=== PATIENT | female | born 1995 | race Caucasian/White ===

== ENCOUNTER 2018-03-05 20:38 | Emergency (ER) | payer OTHER ==
[2018-03-05] MEDS ORDERED: Sodium Chloride 0.9% 2.5 ML Syringe FLUSH PRN (20:57)
[2018-03-05] MEDS ORDERED: Ketorolac 30 MG/ML SDV IVPUSH ONE (20:57)
[2018-03-05] MEDS ORDERED: Ondansetron 4 MG/2 ML SDV IVPUSH ONE (20:57)
[2018-03-05] MEDS ORDERED: Sodium Chloride 0.9% 1,000 ML IV ONE (20:57)
[2018-03-05] MEDS ORDERED: Sodium Chloride 0.9% 10 ML Syringe FLUSH PRN (20:57)
[2018-03-05] MEDS ORDERED: Aspirin 81 MG Tab.Chew PO ONE (21:00)
--- NOTE | 2018-03-05 21:00 | EDM.PDOC ---
ED HPI GENERAL MEDICAL PROBLEM - General Chief Complaint: Chest Pain Stated Complaint: CHEST PAIN Time Seen by Provider: 03/05/18 20:41 - History of Present Illness INITIAL COMMENTS - FREE TEXT/NARRATIVE: HISTORY AND PHYSICAL: History of present illness: The patient is a 22-year-old female who arrives via EMS for an episode of feeling like her heart was beating irregularly which then proceeded to cause chest tightness radiating to her left upper shoulder area The patient says she has a significant history of an irregular heartbeat for which she did a Holter monitor about 2 years ago and was supposed to follow-up with a fur puller but never got the results of the Holter nor did she follow-up with a fur puller. She says she has had these episodes in the past to neck seem to be more severe. She says over the last 1 week she's been having them more frequently and they' ve been brief in duration. She does not pass out or blacked out but she does feel lightheaded with them. She gets nausea but no diaphoresis and does get some shortness of breath. She's been eating and drinking normally otherwise and has had no fever chills or upper respiratory symptoms and no diarrhea or abdominal pain. The patient also has a history of chronic migraines and has had a migraine headache for the last 2-3 days but she is not here in the ED for that. She also has a history of PCO S and was prescribed phentermine by her provider back home in [place] which she took only once but didn't like the way it made her feel so she has not taken it since. The patient has no significant family history of cardiac disease and has no significant social history. Her only in the ED says that she feels very lightheaded and nauseated but is not having chest discomfort on my evaluation. The patient does not take oral control pills Review of systems: As per history of present illness and below otherwise all systems reviewed and negative. Past medical history: As per history of present illness and as reviewed below otherwise noncontributory. Surgical history: As per history of present illness and as reviewed below otherwise noncontributory. Social history: No reported history of drug or alcohol abuse. Family history: As per history of present illness and as reviewed below otherwise noncontributory. Physical exam: General: Well-developed well-nourished female who is nontoxic and vital signs are noted by me. HEENT: Atraumatic, normocephalic, pupils reactive, negative for conjunctival pallor or scleral icterus, mucous membranes moist, throat clear, neck supple, nontender, trachea midline. Lungs: Clear to auscultation, breath sounds equal bilaterally, chest nontender. Heart: S1S2, regular, negative for clicks, rubs, or JVD. Abdomen: Soft, nondistended, nontender. Negative for masses or hepatosplenomegaly. Negative for costovertebral tenderness. Pelvis: Stable nontender. Genitourinary: Deferred. Rectal: Deferred. Extremities: Atraumatic, negative for cords or calf pain. Neurovascular unremarkable. No pedal edema or leg asymmetry Neuro: Awake, alert, oriented. Cranial nerves II through XII unremarkable. Cerebellum unremarkable. Motor and sensory unremarkable throughout. Exam nonfocal. Diagnostics: EKG chest x-ray CBC CMP troponin UA UCG TSH orthostatic vitals Therapeutics: IV fluids IV O2 monitor Zofran Toradol aspirin morphine With orthostatic vitals there was no change in blood pressure but the heart rate did go from 92 laying to 77 standing with the patient was asymptomatic. Please also note that the patient initially came in slightly tachycardic which resolved spontaneously and has maintained a normal rate. The patient has been in a regular rhythm here on the monitor and still complains of chest discomfort. Patient is still complaining of lower midsternal chest discomfort which there is some reproducibility to it that on reevaluation. She has been a sinus rhythm here without any regularity. I will do a repeat EKG and troponin as it's been 2 hours since the prior and I will also order a CTA of the chest as there is somewhat atypicality to her presentation. I will also give her a small dose of morphine. After multiple attempts at trying to get an appropriate IV I discussed with the patient holding the CTA of the chest as clinically she is presenting more as palpitations with atypical chest pain that she has had on-and-off over the last 1 week rather than an acute event. She would like to not pursue any further IV attempts and would like to hold on the CTA as well. I've done to EKGs and 2 cardiac enzymes both of which are within normal limits and I stressed to her the need and importance of following up in the clinic and getting a Holter monitor and getting appropriate follow-up for the symptomatology she is having. She is feeling better overall and is comfortable with going home and I stressed the importance of reasons to return. Impression: Episodic palpitations/irregular heartbeat with history of same associated with chest pain, etiology unclear stable Definitive disposition and diagnosis as appropriate pending reevaluation and review of above. chest Pain Score (Numeric/FACES): 8 - Related Data Allergies Allergy/AdvReac Type Severity Reaction Status Date / Time pseudoephedrine Allergy Hives Verified 03/05/18 20:53 [From Sudafed] tramadol Allergy Hives Verified 03/05/18 20:53 Home Meds: Home Meds . [No Known Home Meds] 03/05/18 [History] Past Medical History Cardiovascular History: Reports: Arrhythmia WIRER HELPER History: Reports: Polycystic Ovaries Social & Family History - Family History Family Medical History: Noncontributory - Tobacco Use Smoking Status *Q: Never Smoker - Recreational Drug Use Recreational Drug Use: No ED ROS GENERAL - Review of Systems Review Of Systems: ROS reveals no pertinent complaints other than HPI. ED EXAM, GENERAL - Physical Exam Exam: See Below (See dictation) Course - Vital Signs Last Recorded V/S: Last Vital Signs Temp 36.3 C 03/05/18 20:38 Pulse 77 03/05/18 22:35 Resp 17 03/05/18 22:35 BP 122/78 03/05/18 22:35 Pulse Ox 100 03/05/18 22:35 - Orders/Labs/Meds Orders: Active Orders 24 hr Category Date Time Status Cardiac Monitoring [RC] . DIRECTED Care 03/05/18 20:56 Active EKG Documentation Completion [RC] STAT Care 03/05/18 20:56 Active EKG Documentation Completion [RC] STAT Care 03/05/18 23:22 Active Orthostatic Vital Signs [RC] ASDIRECTED Care 03/05/18 20:57 Active Oxygen Therapy, ED [RC] ASDIRECTED Care 03/05/18 20:56 Active Pulse Oximetry [RC] ASDIRECTED Care 03/05/18 20:56 Active Ang Chest [CT] Stat Exams 03/05/18 23:37 Stop Req Chest 1V Frontal [CR] Stat Exams 03/05/18 20:57 Taken HCG QUALITATIVE,URINE [URCHEM] Stat Lab 03/05/18 23:52 Ordered UA W/MICROSCOPIC [URIN] Stat Lab 03/05/18 23:52 Ordered Sodium Chloride 0.9% [Saline Flush] Med 03/05/18 20:57 Active 10 ml FLUSH ASDIRECTED PRN Sodium Chloride 0.9% [Saline Flush] Med 03/05/18 20:57 Active 2.5 ml FLUSH ASDIRECTED PRN Saline Lock Insert [OM.PC] Stat Oth 03/05/18 20:56 Ordered Medication Orders Sodium Chloride (Saline Flush) 10 ml FLUSH ASDIRECTED PRN PRN Reason: Keep Vein Open Sodium Chloride (Saline Flush) 2.5 ml FLUSH ASDIRECTED PRN PRN Reason: Keep Vein Open Labs: Laboratory Tests 03/05/18 03/05/18 03/05/18 Range/Units 21:41 21:41 21:41 WBC 7.23 (4.0-11.0) K/uL RBC 4.79 (4.30-5.90) M/uL Hgb 13.8 (12.0-16.0) g/dL Hct 40.4 (36.0-46.0) % MCV 84.3 (80.0-98.0) fL MCH 28.8 (27.0-32.0) pg MCHC 34.2 (31.0-37.0) g/dL RDW Std Deviation 38.6 (28.0-62.0) fl RDW Coeff of Anabella 13 (11.0-15.0) % Plt Count 360 (150-400) K/uL MPV 9.80 (7.40-12.00) fL Neut % (Auto) 68.6 (48.0-80.0) % Lymph % (Auto) 19.9 (16.0-40.0) % [place] % (Auto) 9.7 (0.0-15.0) % Eos % (Auto) 1.5 (0.0-7.0) % Baso % (Auto) 0.3 (0.0-1.5) % Neut # (Auto) 5.0 (1.4-5.7) K/uL Lymph # (Auto) 1.4 (0.6-2.4) K/uL Fountain # (Auto) 0.7 (0.0-0.8) K/uL Eos # (Auto) 0.1 (0.0-0.7) K/uL Baso # (Auto) 0.0 (0.0-0.1) K/uL Nucleated RBC % 0.0 /100WBC Nucleated RBCs # 0 K/uL Sodium 140 (136-145) mmol/L Potassium 3.9 (3.5-5.1) mmol/L Chloride 104 (98-107) mmol/L Carbon Dioxide 25.7 (21.0-32.0) mmol/L BUN 14 (7.0-18.0) mg/dL Creatinine 1.0 (0.6-1.0) mg/dL Est Cr Clr Drug Dosing 87.27 mL/min Estimated GFR (MDRD) > 60.0 ml/min Glucose 100 (74-106) mg/dL Calcium 9.3 (8.5-10.1) mg/dL Total Bilirubin 0.3 (0.2-1.0) mg/dL AST 20 (15-37) IU/L ALT 20 (14-63) IU/L Alkaline Phosphatase 82 (46-116) U/L Troponin I < 0.050 (0.000-0.056) ng/mL Total Protein 7.8 (6.4-8.2) g/dL Albumin 4.2 (3.4-5.0) g/dL Globulin 3.6 H (2.0-3.5) g/dL Albumin/Globulin Ratio 1.2 L (1.3-2.8) TSH 3rd Generation 1.17 (0.36-3.74) uIU/mL HCG, Qual NEGATIVE (NEG) Urine Color Urine Appearance Urine pH (5.0-8.0) Ur Specific [place] (1.001-1.035) Urine Protein (NEGATIVE) mg/dL Urine Glucose (UA) (NEGATIVE) mg/dL Urine Ketones (NEGATIVE) mg/dL Urine Occult Blood (NEGATIVE) Urine Nitrite (NEGATIVE) Urine Bilirubin (NEGATIVE) Urine Urobilinogen (<2.0) EU/dL Ur Leukocyte Esterase (NEGATIVE) Urine RBC (0-2/HPF) Urine WBC (0-5/HPF) Ur Epithelial Cells (NONE-FEW) Urine Bacteria (NEGATIVE) Urine HCG, Qual (NEGATIVE) 05/10/18 05/10/18 05/10/18 Range/Units 23:34 23:52 23:52 WBC (4.0-11.0) K/uL RBC (4.30-5.90) M/uL Hgb (12.0-16.0) g/dL Hct (36.0-46.0) % MCV (80.0-98.0) fL MCH (27.0-32.0) pg MCHC (31.0-37.0) g/dL RDW Std Deviation (28.0-62.0) fl RDW Coeff of Anabella (11.0-15.0) % Plt Count (150-400) K/uL MPV (7.40-12.00) fL Neut % (Auto) (48.0-80.0) % Lymph % (Auto) (16.0-40.0) % [place] % (Auto) (0.0-15.0) % Eos % (Auto) (0.0-7.0) % Baso % (Auto) (0.0-1.5) % Neut # (Auto) (1.4-5.7) K/uL Lymph # (Auto) (0.6-2.4) K/uL F[place] # (Auto) (0.0-0.8) K/uL Eos # (Auto) (0.0-0.7) K/uL Baso # (Auto) (0.0-0.1) K/uL Nucleated RBC % /100WBC Nucleated RBCs # K/uL Sodium (136-145) mmol/L Potassium (3.5-5.1) mmol/L Chloride (98-107) mmol/L Carbon Dioxide (21.0-32.0) mmol/L BUN (7.0-18.0) mg/dL Creatinine (0.6-1.0) mg/dL Est Cr Clr Drug Dosing mL/min Estimated GFR (MDRD) ml/min Glucose (74-106) mg/dL Calcium (8.5-10.1) mg/dL Total Bilirubin (0.2-1.0) mg/dL AST (15-37) IU/L ALT (14-63) IU/L Alkaline Phosphatase (46-116) U/L Troponin I < 0.050 (0.000-0.056) ng/mL Total Protein (6.4-8.2) g/dL Albumin (3.4-5.0) g/dL Globulin (2.0-3.5) g/dL Albumin/Globulin Ratio (1.3-2.8) TSH 3rd Generation (0.36-3.74) uIU/mL HCG, Qual (NEG) Urine Color YELLOW Urine Appearance CLEAR Urine pH 7.0 (5.0-8.0) Ur Specific [place] 1.025 (1.001-1.035) Urine Protein NEGATIVE (NEGATIVE) mg/dL Urine Glucose (UA) NEGATIVE (NEGATIVE) mg/dL Urine Ketones NEGATIVE (NEGATIVE) mg/dL Urine Occult Blood NEGATIVE (NEGATIVE) Urine Nitrite NEGATIVE (NEGATIVE) Urine Bilirubin NEGATIVE (NEGATIVE) Urine Urobilinogen 0.2 (<2.0) EU/dL Ur Leukocyte Esterase NEGATIVE (NEGATIVE) Urine RBC 0-1 (0-2/HPF) Urine WBC 0-1 (0-5/HPF) Ur Epithelial Cells RARE (NONE-FEW) Urine Bacteria RARE (NEGATIVE) Urine HCG, Qual NEGATIVE (NEGATIVE) Meds: Medications Generic Name Dose Route Start Last Admin Trade Name Freq PRN Reason Stop Dose Admin Sodium Chloride 10 ml 03/05/18 20:57 Saline Flush FLUSH ASDIRECTED PRN Keep Vein Open Sodium Chloride 2.5 ml 03/05/18 20:57 Saline Flush FLUSH ASDIRECTED PRN Keep Vein Open Discontinued Medications Generic Name Dose Route Start Last Admin Trade Name Freq PRN Reason Stop Dose Admin Aspirin 324 mg 03/05/18 21:00 03/05/18 22:04 Aspirin PO 03/05/18 21:01 324 mg ONETIME ONE Administration Sodium Chloride 1,000 mls @ 999 mls/hr 03/05/18 20:57 03/05/18 22:16 Normal Saline IV 03/05/18 21:57 999 mls/hr STAT ONE Administration Ketorolac Tromethamine 30 mg 03/05/18 20:57 03/05/18 22:07 Toradol IVPUSH 03/05/18 20:58 30 mg ONETIME ONE Administration Morphine Sulfate 2 mg 03/05/18 23:37 03/06/18 00:30 Morphine IVPUSH 03/05/18 23:38 2 mg ONETIME ONE Administration Ondansetron HCl 4 mg 03/05/18 20:57 03/05/18 22:05 Zofran IVPSOURAV 03/05/18 20:58 4 mg ONETIME ONE Administration Departure - Departure Time of Disposition: 00:46 Disposition: Home, Self-Care 01 Condition: Good Clinical Impression: Palpitations, Atypical chest pain - Discharge Information Referrals: PCP,None [Primary Care Provider] - Forms: ED Department Discharge Additional Instructions: The following information is given to patients seen in the emergency department who are being discharged to home. This information is to outline your options for follow-up care. We provide all patients seen in our emergency department with a follow-up referral. The need for follow-up, as well as the timing and circumstances, are variable depending upon the specifics of your emergency department visit. If you don't have a primary care physician on staff, we will provide you with a referral. We always advise you to contact your personal physician following an emergency department visit to inform them of the circumstance of the visit and for follow-up with them and/or the need for any referrals to a consulting specialist. The emergency department will also refer you to a specialist when appropriate. This referral assures that you have the opportunity for followup care with a specialist. All of these measure are taken in an effort to provide you with optimal care, which includes your followup. Under all circumstances we always encourage you to contact your private physician who remains a resource for coordinating your care. When calling for followup care, please make the office aware that this follow-up is from your recent emergency room visit. If for any reason you are refused follow-up, please contact the [facility] emergency department at and ask to speak to the emergency department charge nurse. [facility]- Internal Medicine and Family [address] [address] Please contact the clinic this morning at 8 AM to schedule a follow-up appointment with any provider that has availability so that you can further pursue the cause of your symptoms. Please discuss with them doing a Holter monitor as we discussed and referral to cardiology if indicated. Please reduce any caffeine use and rest push hydration and return to ER as needed and as discussed. Please start a journal logging your symptoms as we discussed as this may lead to important information regarding the cause of the palpitations - My Orders Last 24 Hours: My Active Orders 03/05/18 20:56 Cardiac Monitoring [RC] . DIRECTED EKG Documentation Completion [RC] STAT Oxygen Therapy, ED [RC] ASDIRECTED Pulse Oximetry [RC] ASDIRECTED Saline Lock Insert [OM.PC] Stat 03/05/18 20:57 Orthostatic Vital Signs [RC] ASDIRECTED Chest 1V Frontal [CR] Stat Sodium Chloride 0.9% [Saline Flush] 10 ml FLUSH ASDIRECTED PRN Sodium Chloride 0.9% [Saline Flush] 2.5 ml FLUSH ASDIRECTED PRN 03/05/18 23:22 EKG Documentation Completion [RC] STAT 03/05/18 23:37 Ang Chest [CT] Stat 03/05/18 23:52 HCG QUALITATIVE,URINE [URCHEM] Stat UA W/MICROSCOPIC [URIN] Stat - Assessment/Plan Last 24 Hours: My Active Orders 03/05/18 20:56 Cardiac Monitoring [RC] . DIRECTED EKG Documentation Completion [RC] STAT Oxygen Therapy, ED [RC] ASDIRECTED Pulse Oximetry [RC] ASDIRECTED Saline Lock Insert [OM.PC] Stat 03/05/18 20:57 Orthostatic Vital Signs [RC] ASDIRECTED Chest 1V Frontal [CR] Stat Sodium Chloride 0.9% [Saline Flush] 10 ml FLUSH ASDIRECTED PRN Sodium Chloride 0.9% [Saline Flush] 2.5 ml FLUSH ASDIRECTED PRN 03/05/18 23:22 EKG Documentation Completion [RC] STAT 03/05/18 23:37 Ang Chest [CT] Stat 03/05/18 23:52 HCG QUALITATIVE,URINE [URCHEM] Stat UA W/MICROSCOPIC [URIN] Stat
[2018-03-05 22:31] LABS: CHLORIDE,CL 104 mmol/L (98-107); SODIUM,NA 140 mmol/L (136-145)
[2018-03-05] MEDS ORDERED: Morphine 10 MG/ML Syringe IVPUSH ONE (23:37)
--- NOTE | 2018-03-06 15:33 | CR ---
EXAM DATE: 03/05/18 PATIENT'S AGE: 22 Patient: BEREKET CALLAHAN Facility: [place], [place] Site . Site : 1995 Study: XRay Chest [id number]/10/2018 10:02:22 PM Ordering Physician: Billy Munoz Final Report: INDICATION: Chest pain, shortness of breath. Lightheaded. History of arrhythmia. TECHNIQUE: Chest radiograph 1 view COMPARISON: None FINDINGS: Cardiovascular and mediastinum: The heart silhouette is normal in size and morphology. The mediastinum is normal in appearance. Lungs and pleural spaces: Both lungs are unremarkable in appearance. No sign of pleural effusion seen. No pneumothorax is identified. Bones and soft tissues: No significant findings. IMPRESSION: 1. No acute cardiopulmonary disease is seen. Dictated by Walter Rodriguez MD @ 03/05/2018 10:10:30 PM Dictated by: Walter Rodriguez MD @ 03/05/2018 22:10:35 (Electronic Signature) Report Signed by Proxy. HOOD
== END 2018-03-06 01:10 | disposition home or self-care (01) ==
LOC: MW.ED 20:38
DX: R07.89 Other chest pain (principal); R00.2 Palpitations; Z88.5 Allergy status to narcotic agent; Z88.8 Allergy status to other drugs, medicaments and biological substances
CPT/HCPCS: 36415; 71045; 80053; 81001; 81025; 84443; 84484; 84703; 85025; 93005; 96361; 96374; 96375; 99285; A9270; J1885; J2270; J2405; J7040; 99284

== ENCOUNTER 2018-12-05 04:31 | Emergency (ER) | payer BC ==
[2018-12-05] MEDS ORDERED: Sodium Chloride 0.9% 2.5 ML Syringe FLUSH PRN (04:59)
[2018-12-05] MEDS ORDERED: Sodium Chloride 0.9% 10 ML Syringe FLUSH PRN (04:59)
--- NOTE | 2018-12-05 05:04 | EDM.PDOC ---
ED HPI GENERAL MEDICAL PROBLEM - General Chief Complaint: Neuro Symptoms/Deficits Stated Complaint: migraines Time Seen by Provider: 12/05/18 04:53 - History of Present Illness INITIAL COMMENTS - FREE TEXT/NARRATIVE: HISTORY AND PHYSICAL: History of present illness: The patient is a 23-year-old female with a long-standing history of migraine headaches since she was diagnosed at 16 years of age and presents with a history of on and off having trouble with word finding and switching of letters and words for the last few years but this morning started having stuttering speech and vague visual changes. The patient said that about 2 hours prior to presenting in this dictation she was in bed but she was not sleeping and she was with her significant other when she started having trouble speaking and stuttering. She says that she's not having trouble thinking but she feels dizzy and lightheaded but did not pass out or blackout. She also says that she is not having blurred vision but she seeing some black spots and figures and stars but it is not blurred vision. She then subsequently developed a headache on the top of her head which is different from her typical migraines which are usually in the temples. She says that she usually is not nauseated with her migraines and she is slightly nauseated right now. She has no weakness in her extremities no chest pain or shortness of breath but does have some nausea. She's had no vomiting or diarrhea but says that she's had a fever and viral symptoms for the last 2 weeks and has been taking Tylenol for the fever. She says she has felt run down and weak with some upper respiratory symptoms but nothing significant enough that she saw a provider. She did not get her influenza shot this year. The patient also says that she feels like she is dizzy and that her eyes are bobbing with certain movements but she has no history of inner ear problems. Patient tells me that she usually gets headaches about 2 times per week on a regular basis and only uses [id number] meds Review of systems: As per history of present illness and below otherwise all systems reviewed and negative. Past medical history: As per history of present illness and as reviewed below otherwise noncontributory. Surgical history: As per history of present illness and as reviewed below otherwise noncontributory. Social history: No reported history of drug or alcohol abuse. Family history: As per history of present illness and as reviewed below otherwise noncontributory. Physical exam: General: Well-developed well-nourished overweight female who is nontoxic and vital signs are noted by me. With her speech she is able to speak clearly but it is stuttering and staccato-like and sometimes she has difficulty getting the words out but she is not having slurred speech. On visual inspection she has no facial droop or weakness. HEENT: Atraumatic, normocephalic, pupils reactive, negative for conjunctival pallor or scleral icterus, mucous membranes moist, throat clear, neck supple, nontender, trachea midline. TMs are normal bilaterally, there is no cervical adenopathy or nuchal rigidity and there is no overt nystagmus that I can elicit. Lungs: Clear to auscultation, breath sounds equal bilaterally, chest nontender. Heart: S1S2, regular rhythm and slightly tachycardic rate on my evaluation, negative for clicks, rubs, or JVD. Abdomen: Soft, nondistended, nontender. Negative for masses or hepatosplenomegaly. Negative for costovertebral tenderness. Pelvis: Stable nontender. Genitourinary: Deferred. Rectal: Deferred. Extremities: Atraumatic, negative for cords or calf pain. Neurovascular unremarkable. Full range of motion all extremities without defects or deficits Neuro: Awake, alert, oriented. Cranial nerves II through XII unremarkable. Cerebellum unremarkable. Motor and sensory unremarkable throughout. Exam nonfocal. There is normal strength throughout and dorsi and plantar flexion is intact 5/5 inclusive of the great toe. Patient is mentating clearly and is following all commands and has no cerebellar signs and can do finger-nose with ease Diagnostics: NIHSS EKG influenza swab CBC CMP INR troponin TSH UA hCG UDS CT scan of the head chest x-ray Therapeutics: IV O2 monitor IV fluids aspirin We attempted to the visual acuity but the patient is telling us that she has glasses for both near and far and her dog chewed them and she does not have them so everything looks blurry to her currently. She cannot do the eye exam due to blurriness both near and far. 0542: Case was discussed with a neurologist at [facility] in [place] Dr. Evans and he feels that this patient is not a candidate for TPA due to the stroke scale of 1 in the atypicality of this and the likelihood that this is a component of a migraine equivalent. He does agree that the patient needs an emergent MRI and will need to be transported to them for that study and reevaluated on arrival there. I also discussed this case with Dr. Lovelace in the ER at [facility] at 5:47 AM and he accepts the patient for transfer as well. Results with the patient and at bedside and they are aware of my concerns and the need for emergent transfer for more definitive testing and reevaluation and they are agreeable. I will continue to monitor the workup and plan for ALS transport as soon as it is available. Dr. Evans does not feel that the patient needs to be flown and can come by ground. He says that as it is unclear if this is stuttering or expressive aphasia the MRI is critical and I have relayed this information to the patient. He is currently stable and has had no significant changes in her neurologic exam. Impression: Expressive aphasia/stuttering rule out CVA versus atypical migraine Definitive disposition and diagnosis as appropriate pending reevaluation and review of above. Head Pain Score (Numeric/FACES): 9 - Related Data Allergies Allergy/AdvReac Type Severity Reaction Status Date / Time pseudoephedrine Allergy Hives Verified 12/05/18 04:50 [From Sudafed] tramadol Allergy Hives Verified 12/05/18 04:50 Home Meds: Home Meds . 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 Musculoskeletal History: Reports: None Neurological History: Reports: None Psychiatric History: Reports: None Endocrine/Metabolic History: Reports: None Hematologic History: Reports: None Oncologic (Cancer) History: Reports: None Dermatologic History: Reports: None - Infectious Disease History Infectious Disease History: Reports: None - Past Surgical History Female Surgical History: Reports: None Social & Family History - Family History Family Medical History: Noncontributory - Caffeine Use Caffeine Use: Reports: Coffee, Soda ED ROS GENERAL - Review of Systems Review Of Systems: ROS reveals no pertinent complaints other than HPI. ED EXAM, GENERAL - Physical Exam Exam: See Below (See dictation) Course - Vital Signs Last Recorded V/S: Last Vital Signs Temp 36.4 C 12/05/18 04:50 Pulse 110 H 12/05/18 04:50 Resp 18 12/05/18 04:50 BP 139/95 H 12/05/18 04:50 Pulse Ox 97 12/05/18 05:37 - Orders/Labs/Meds Orders: Active Orders 24 hr Category Date Time Status Cardiac Monitoring [RC] . DIRECTED Care 12/05/18 04:59 Active Communication Order [RC] STAT Care 12/05/18 05:01 Active Communication Order [RC] STAT Care 12/05/18 05:10 Active EKG Documentation Completion [RC] STAT Care 12/05/18 04:59 Active Oxygen Therapy, ED [RC] ASDIRECTED Care 12/05/18 04:59 Active Pulse Oximetry [RC] ASDIRECTED Care 12/05/18 04:59 Active COMPREHENSIVE METABOLIC PN,CMP [CHEM] Stat Lab 12/05/18 05:29 Received INFLUENZA A+B AG SCREEN [RM] Stat Lab 12/05/18 05:04 Ordered TROPONIN I [CHEM] Stat Lab 12/05/18 05:29 Received TSH [CHEM] Stat Lab 12/05/18 05:29 Received Sodium Chloride 0.9% [Normal Saline] 1,000 ml Med 12/05/18 05:33 Active IV STAT Sodium Chloride 0.9% [Saline Flush] Med 12/05/18 04:59 Active 10 ml FLUSH ASDIRECTED PRN Sodium Chloride 0.9% [Saline Flush] Med 12/05/18 04:59 Active 2.5 ml FLUSH ASDIRECTED PRN Saline Lock Insert [OM.PC] Stat Oth 12/05/18 04:59 Ordered Medication Orders Sodium Chloride (Normal Saline) 1,000 mls @ 999 mls/hr IV STAT ONE Stop: 12/05/18 06:33 Last Admin: 12/05/18 05:38 Dose: 999 mls/hr Sodium Chloride (Saline Flush) 10 ml FLUSH ASDIRECTED PRN PRN Reason: Keep Vein Open Last Admin: 12/05/18 05:44 Dose: 10 ml Sodium Chloride (Saline Flush) 2.5 ml FLUSH ASDIRECTED PRN PRN Reason: Keep Vein Open Last Admin: 12/05/18 05:44 Dose: 2.5 ml Labs: Laboratory Tests 12/05/18 12/05/18 12/05/18 Range/Units 05:19 05:19 05:29 WBC 10.48 (4.0-11.0) K/uL RBC 4.90 (4.30-5.90) M/uL Hgb 14.0 (12.0-16.0) g/dL Hct 41.1 (36.0-46.0) % MCV 83.9 (80.0-98.0) fL MCH 28.6 (27.0-32.0) pg MCHC 34.1 (31.0-37.0) g/dL RDW Std Deviation 38.2 (28.0-62.0) fl RDW Coeff of Anabella 13 (11.0-15.0) % Plt Count 371 (150-400) K/uL MPV 9.70 (7.40-12.00) fL Neut % (Auto) 66.4 (48.0-80.0) % Lymph % (Auto) 25.8 (16.0-40.0) % Travis % (Auto) 6.7 (0.0-15.0) % Eos % (Auto) 0.9 (0.0-7.0) % Baso % (Auto) 0.2 (0.0-1.5) % Neut # (Auto) 7.0 H (1.4-5.7) K/uL Lymph # (Auto) 2.7 H (0.6-2.4) K/uL Travis # (Auto) 0.7 (0.0-0.8) K/uL Eos # (Auto) 0.1 (0.0-0.7) K/uL Baso # (Auto) 0.0 (0.0-0.1) K/uL Nucleated RBC % 0.0 /100WBC Nucleated RBCs # 0 K/uL INR HCG, Qual (NEG) Urine Color YELLOW Urine Appearance CLEAR Urine pH 6.0 (5.0-8.0) Ur Specific [place] 1.020 (1.001-1.035) Urine Protein NEGATIVE (NEGATIVE) mg/dL Urine Glucose (UA) NEGATIVE (NEGATIVE) mg/dL Urine Ketones NEGATIVE (NEGATIVE) mg/dL Urine Occult Blood NEGATIVE (NEGATIVE) Urine Nitrite NEGATIVE (NEGATIVE) Urine Bilirubin NEGATIVE (NEGATIVE) Urine Urobilinogen 0.2 (<2.0) EU/dL Ur Leukocyte Esterase NEGATIVE (NEGATIVE) Urine Opiates Screen NEGATIVE (NEGATIVE) Ur Oxycodone Screen NEGATIVE (NEGATIVE) Urine Methadone Screen NEGATIVE (NEGATIVE) Ur Barbiturates Screen NEGATIVE (NEGATIVE) Ur Phencyclidine Scrn NEGATIVE (NEGATIVE) Ur Amphetamine Screen NEGATIVE (NEGATIVE) U Methamphetamines Scrn NEGATIVE (NEGATIVE) U Benzodiazepines Scrn NEGATIVE (NEGATIVE) U Cocaine Metab Screen NEGATIVE (NEGATIVE) U Marijuana (THC) Screen NEGATIVE (NEGATIVE) 12/05/18 12/05/18 Range/Units 05:29 05:29 WBC (4.0-11.0) K/uL RBC (4.30-5.90) M/uL Hgb (12.0-16.0) g/dL Hct (36.0-46.0) % MCV (80.0-98.0) fL MCH (27.0-32.0) pg MCHC (31.0-37.0) g/dL RDW Std Deviation (28.0-62.0) fl RDW Coeff of Anabella (11.0-15.0) % Plt Count (150-400) K/uL MPV (7.40-12.00) fL Neut % (Auto) (48.0-80.0) % Lymph % (Auto) (16.0-40.0) % Travis % (Auto) (0.0-15.0) % Eos % (Auto) (0.0-7.0) % Baso % (Auto) (0.0-1.5) % Neut # (Auto) (1.4-5.7) K/uL Lymph # (Auto) (0.6-2.4) K/uL Travis # (Auto) (0.0-0.8) K/uL Eos # (Auto) (0.0-0.7) K/uL Baso # (Auto) (0.0-0.1) K/uL Nucleated RBC % /100WBC Nucleated RBCs # K/uL INR 0.98 HCG, Qual NEGATIVE (NEG) Urine Color Urine Appearance Urine pH (5.0-8.0) Ur Specific [place] (1.001-1.035) Urine Protein (NEGATIVE) mg/dL Urine Glucose (UA) (NEGATIVE) mg/dL Urine Ketones (NEGATIVE) mg/dL Urine Occult Blood (NEGATIVE) Urine Nitrite (NEGATIVE) Urine Bilirubin (NEGATIVE) Urine Urobilinogen (<2.0) EU/dL Ur Leukocyte Esterase (NEGATIVE) Urine Opiates Screen (NEGATIVE) Ur Oxycodone Screen (NEGATIVE) Urine Methadone Screen (NEGATIVE) Ur Barbiturates Screen (NEGATIVE) Ur Phencyclidine Scrn (NEGATIVE) Ur Amphetamine Screen (NEGATIVE) U Methamphetamines Scrn (NEGATIVE) U Benzodiazepines Scrn (NEGATIVE) U Cocaine Metab Screen (NEGATIVE) U Marijuana (THC) Screen (NEGATIVE) Meds: Medications Generic Name Dose Route Start Last Admin Trade Name Freq PRN Reason Stop Dose Admin Sodium Chloride 1,000 mls @ 999 mls/hr 12/05/18 05:33 12/05/18 05:38 Normal Saline IV 12/05/18 06:33 999 mls/hr STAT ONE Administration Sodium Chloride 10 ml 12/05/18 04:59 12/05/18 05:44 Saline Flush FLUSH 10 ml ASDIRECTED PRN Administration Keep Vein Open Sodium Chloride 2.5 ml 12/05/18 04:59 12/05/18 05:44 Saline Flush FLUSH 2.5 ml ASDIRECTED PRN Administration Keep Vein Open Discontinued Medications Generic Name Dose Route Start Last Admin Trade Name Freq PRN Reason Stop Dose Admin Aspirin 325 mg 12/05/18 05:35 12/05/18 05:44 Aspirin PO 12/05/18 05:36 325 mg ONETIME ONE Administration Departure - Departure Time of Disposition: 05:53 Disposition: DC/Tfer to Acute Hospital 02 Condition: Good Clinical Impression: Episode of change in speech, Expressive aphasia, History of migraine - Discharge Information Referrals: PCP,None [Primary Care Provider] - Forms: ED Department Discharge - My Orders Last 24 Hours: My Active Orders 12/05/18 04:59 Cardiac Monitoring [RC] . DIRECTED EKG Documentation Completion [RC] STAT Oxygen Therapy, ED [RC] ASDIRECTED Pulse Oximetry [RC] ASDIRECTED Sodium Chloride 0.9% [Saline Flush] 10 ml FLUSH ASDIRECTED PRN Sodium Chloride 0.9% [Saline Flush] 2.5 ml FLUSH ASDIRECTED PRN Saline Lock Insert [OM.PC] Stat 12/05/18 05:01 Communication Order [RC] STAT 12/05/18 05:04 INFLUENZA A+B AG SCREEN [RM] Stat 12/05/18 05:10 Communication Order [RC] STAT 12/05/18 05:29 COMPREHENSIVE METABOLIC PN,CMP [CHEM] Stat TROPONIN I [CHEM] Stat TSH [CHEM] Stat 12/05/18 05:33 Sodium Chloride 0.9% [Normal Saline] 1,000 ml IV STAT - Assessment/Plan Last 24 Hours: My Active Orders 12/05/18 04:59 Cardiac Monitoring [RC] . DIRECTED EKG Documentation Completion [RC] STAT Oxygen Therapy, ED [RC] ASDIRECTED Pulse Oximetry [RC] ASDIRECTED Sodium Chloride 0.9% [Saline Flush] 10 ml FLUSH ASDIRECTED PRN Sodium Chloride 0.9% [Saline Flush] 2.5 ml FLUSH ASDIRECTED PRN Saline Lock Insert [OM.PC] Stat 12/05/18 05:01 Communication Order [RC] STAT 12/05/18 05:04 INFLUENZA A+B AG SCREEN [RM] Stat 12/05/18 05:10 Communication Order [RC] STAT 12/05/18 05:29 COMPREHENSIVE METABOLIC PN,CMP [CHEM] Stat TROPONIN I [CHEM] Stat TSH [CHEM] Stat 12/05/18 05:33 Sodium Chloride 0.9% [Normal Saline] 1,000 ml IV STAT
--- NOTE | 2018-12-05 05:31 | CT ---
INDICATION: Head pain. Stroke protocol. COMPARISON: None available. TECHNIQUE: CT examination of the head was performed with 3 mm thick axial sections without intravenous contrast. Images were obtained from the vertex of the skull through the skull base, and I examined the images with the brain and bone windows. Please note that all CT scans at this facility use dose modulation, iterative reconstruction, and/or weight-based dosing when appropriate to reduce radiation dose to as low as reasonably achievable. FINDINGS: : The brain is normal in appearance for the patient`s age on today`s study, with no sign of mass lesion, mass effect, hemorrhage, or edema. The ventricles and sulci are normal in appearance for the patient`s age. The visualized portions of the orbits are normal in appearance. The visualized portions of the paranasal sinuses and mastoids are clear. The osseous structures are normal in their appearance with no sign of abnormality in the skull base or calvarium. IMPRESSION: Normal noncontrast CT of the head for the patient`s age. Nothing seen to correlate with the patient`s pain. Please note that all CT scans at this facility use dose modulation, iterative reconstruction, and/or weight-based dosing when appropriate to reduce radiation dose to as low as reasonably achievable. Dictated by Sebas Dai MD @ Dec 05 2018 5:27AM Signed by Dr. Sebas Dai @ Dec 05 2018 5:29AM
[2018-12-05] MEDS ORDERED: Sodium Chloride 0.9% 1,000 ML IV ONE (05:33)
--- NOTE | 2018-12-05 05:33 | CR ---
INDICATION: Head pain. Stroke protocol. COMPARISON: None available. FINDINGS: An erect single view of the chest was obtained at 0508 hours. The lungs are clear. No focal or diffuse infiltrates are present. The heart is normal in size. The mediastinum is normal in appearance. The osseous structures are normal in appearance for the patient`s age. IMPRESSION: Normal chest single view. Dictated by Sebas Dai MD @ Dec 05 2018 5:30AM Signed by Dr. Sebas Dai @ Dec 05 2018 5:31AM
[2018-12-05] MEDS ORDERED: Aspirin 325 MG Tab PO ONE (05:35)
[2018-12-05 06:03] LABS: CHLORIDE,CL 104 mmol/L (98-107); SODIUM,NA 138 mmol/L (136-145)
[2018-12-05] MEDS ORDERED: Sodium Chloride 0.9% 1,000 ML IV SCH (06:15)
[2018-12-05] MEDS ORDERED: Acetaminophen/HYDROcodone 325-5 MG Tab PO ONE (06:25)
== END 2018-12-05 06:50 ==
LOC: MW.ED 04:31
DX: R47.01 Aphasia (principal); G43.909 Migraine, unspecified, not intractable, without status migrainosus; R47.9 Unspecified speech disturbances; Z88.8 Allergy status to other drugs, medicaments and biological substances
CPT/HCPCS: 36415; 70450; 71045; 80053; 80305; 81003; 84443; 84484; 84703; 85025; 85610; 87804; 93005; 96360; 99285; A9270; J7040; 99284

== ENCOUNTER 2018-12-30 17:27 | Emergency (ER) | payer BC ==
[2018-12-30] MEDS ORDERED: Sodium Chloride 0.9% 10 ML Syringe FLUSH PRN (18:16)
[2018-12-30] MEDS ORDERED: Sodium Chloride 0.9% 2.5 ML Syringe FLUSH PRN (18:16)
[2018-12-30 19:08] LABS: CHLORIDE,CL 104 mmol/L (98-107); SODIUM,NA 137 mmol/L (136-145)
[2018-12-30] MEDS: Sodium Chloride 0.9% 1,000 ML IV ONE (19:10)
[2018-12-30] MEDS: Ondansetron 4 MG/2 ML SDV IVPUSH ONE ×2 (19:14→19:39)
[2018-12-30] MEDS: Famotidine 20 MG/2 ML SDV IVPUSH ONE (19:14)
[2018-12-30] MEDS: Morphine 4 MG/ML Syringe IVPUSH ONE (19:40)
--- NOTE | 2018-12-30 19:41 | EDM.PDOC ---
<Siri Payne - Last Filed: 12/30/18 19:45> ED HPI GENERAL MEDICAL PROBLEM - General Chief Complaint: Gastrointestinal Problem Stated Complaint: STOMACH CRAMPING, NOT KEEPING ANYTHING DOWN Time Seen by Provider: 12/30/18 17:48 Source of Information: Reports: Patient History Limitations: Reports: No Limitations - History of Present Illness INITIAL COMMENTS - FREE TEXT/NARRATIVE: History of present illness: []She has chronic abdominal pain and was once admitted for Crohn's disease. She has been having crampy abdominal pain for the last 2 months, denies vaginal bleeding or discharge. Patient has had 4 days of diarrhea and states she 's been vomiting chunks of red blood. He denies any fevers, chills or any other pain. Patient states she does drink socially but did not drink last night. Review of systems: As per history of present illness and below otherwise all systems reviewed and negative. Past medical history: As per history of present illness and as reviewed below otherwise noncontributory. Surgical history: As per history of present illness and as reviewed below otherwise noncontributory. Social history: No reported history of drug or alcohol abuse. Family history: As per history of present illness and as reviewed below otherwise noncontributory. Physical exam: General: Well developed, well nourished in NAD HEENT: Atraumatic, normocephalic, pupils reactive, negative for conjunctival pallor or scleral icterus, mucous membranes moist, throat clear, neck supple, nontender, trachea midline. Lungs: Clear to auscultation, breath sounds equal bilaterally, chest nontender. Heart: S1S2, regular, negative for clicks, rubs, or JVD. Abdomen: Crease bowel sounds, Soft, nondistended, diffuse tenderness without rebound or guarding. Negative for masses or hepatosplenomegaly. Negative for costovertebral tenderness. Pelvis: Stable nontender. Genitourinary: Deferred. Rectal: Deferred. Extremities: Atraumatic, negative for cords or calf pain. Neurovascular unremarkable. Neuro: Awake, alert, oriented. Cranial nerves II through XII unremarkable. Cerebellum unremarkable. Motor and sensory unremarkable throughout. Exam nonfocal. Skin:warm and dry Diagnostics: CBC, chemistry, urine, lactate, lipase and UA are within normal limits, hCG- negative, CT abdomen and pelvis, H. pylori negative Therapeutics: Dehydration, Pepcid, morphine, Zofran ED Course: Patient is being signed out to Dr. Cervantes to check CT abdomen results. Impression: Prescriptions: Plan: Definitive disposition and diagnosis as appropriate pending reevaluation and review of above. Bilateral Middle Abdomen Pain Score (Numeric/FACES): 8 - Related Data Allergies Allergy/AdvReac Type Severity Reaction Status Date / Time pseudoephedrine Allergy Hives Verified 12/30/18 18:03 [From Sudafed] tramadol Allergy Hives Verified 12/30/18 18:03 Home Meds: Home Meds Butalbit/Acetamin/Caff/Codeine [[id number]-[id number]] 1 cap PO DAILY 12/30/18 [History] Past Medical History - Past Health History Medical/Surgical History: Denies Medical/Surgical History HEENT History: Reports: None Cardiovascular History: Reports: None Respiratory History: Reports: None Gastrointestinal History: Reports: None Genitourinary History: Reports: None [employer] WORK[employer] History: Reports: None Musculoskeletal History: Reports: None Neurological History: Reports: Migraines Psychiatric History: Reports: None Endocrine/Metabolic History: Reports: None Hematologic History: Reports: None Immunologic History: Reports: None Oncologic (Cancer) History: Reports: None Dermatologic History: Reports: None - Infectious Disease History Infectious Disease History: Reports: Chicken Pox - Past Surgical History Head Surgeries/Procedures: Reports: None Female Surgical History: Reports: None Social & Family History - Family History Family Medical History: Noncontributory - Tobacco Use Smoking Status *Q: Never Smoker Second Hand Smoke Exposure: No - Caffeine Use Caffeine Use: Reports: Coffee, Soda - Recreational Drug Use Recreational Drug Use: No ED ROS GENERAL - Review of Systems Review Of Systems: ROS reveals no pertinent complaints other than HPI. ED EXAM, GI/ABD - Physical Exam Exam: See Below (See history of present illness) Course - Vital Signs Last Recorded V/S: Last Vital Signs Temp 36.8 C 12/30/18 18:06 Pulse 92 12/30/18 18:06 Resp 18 12/30/18 18:06 BP 142/96 H 12/30/18 18:06 Pulse Ox 95 12/30/18 18:06 - Orders/Labs/Meds Orders: Active Orders 24 hr Category Date Time Status Sodium Chloride 0.9% [Saline Flush] Med 12/30/18 18:16 Active 10 ml FLUSH ASDIRECTED PRN Sodium Chloride 0.9% [Saline Flush] Med 12/30/18 18:16 Active 2.5 ml FLUSH ASDIRECTED PRN Saline Lock Insert [OM.PC] Stat Oth 12/30/18 18:15 Ordered Medication Orders Sodium Chloride (Saline Flush) 10 ml FLUSH ASDIRECTED PRN PRN Reason: Keep Vein Open Sodium Chloride (Saline Flush) 2.5 ml FLUSH ASDIRECTED PRN PRN Reason: Keep Vein Open Labs: Laboratory Tests 12/30/18 12/30/18 12/30/18 Range/Units 18:27 18:27 18:41 WBC 5.73 (4.0-11.0) K/uL RBC 4.80 (4.30-5.90) M/uL Hgb 13.8 (12.0-16.0) g/dL Hct 39.8 (36.0-46.0) % MCV 82.9 (80.0-98.0) fL MCH 28.8 (27.0-32.0) pg MCHC 34.7 (31.0-37.0) g/dL RDW Std Deviation 38.3 (28.0-62.0) fl RDW Coeff of Anabella 13 (11.0-15.0) % Plt Count 324 (150-400) K/uL MPV 9.70 (7.40-12.00) fL Neut % (Auto) 59.7 (48.0-80.0) % Lymph % (Auto) 28.6 (16.0-40.0) % [place] % (Auto) 9.4 (0.0-15.0) % Eos % (Auto) 1.6 (0.0-7.0) % Baso % (Auto) 0.7 (0.0-1.5) % Neut # (Auto) 3.4 (1.4-5.7) K/uL Lymph # (Auto) 1.6 (0.6-2.4) K/uL [place] # (Auto) 0.5 (0.0-0.8) K/uL Eos # (Auto) 0.1 (0.0-0.7) K/uL Baso # (Auto) 0.0 (0.0-0.1) K/uL Nucleated RBC % 0.0 /100WBC Nucleated RBCs # 0 K/uL Lactate (0.20-2.00) mmol/L Sodium (136-145) mmol/L Potassium (3.5-5.1) mmol/L Chloride (98-107) mmol/L Carbon Dioxide (21.0-32.0) mmol/L BUN (7.0-18.0) mg/dL Creatinine (0.6-1.0) mg/dL Est Cr Clr Drug Dosing mL/min Estimated GFR (MDRD) ml/min Glucose (74-106) mg/dL Calcium (8.5-10.1) mg/dL Total Bilirubin (0.2-1.0) mg/dL AST (15-37) IU/L ALT (14-63) IU/L Alkaline Phosphatase (46-116) U/L Total Protein (6.4-8.2) g/dL Albumin (3.4-5.0) g/dL Globulin (2.6-4.0) g/dL Albumin/Globulin Ratio (0.9-1.6) Lipase (73-393) U/L Urine Color YELLOW Urine Appearance CLEAR Urine pH 6.0 (5.0-8.0) Ur Specific [place] 1.025 (1.001-1.035) Urine Protein NEGATIVE (NEGATIVE) mg/dL Urine Glucose (UA) NEGATIVE (NEGATIVE) mg/dL Urine Ketones NEGATIVE (NEGATIVE) mg/dL Urine Occult Blood NEGATIVE (NEGATIVE) Urine Nitrite NEGATIVE (NEGATIVE) Urine Bilirubin NEGATIVE (NEGATIVE) Urine Urobilinogen 0.2 (<2.0) EU/dL Ur Leukocyte Esterase NEGATIVE (NEGATIVE) Urine RBC 0-1 (0-2/HPF) Urine WBC 1-3 (0-5/HPF) Ur Epithelial Cells FEW (NONE-FEW) Urine Bacteria FEW (NEGATIVE) Urine Mucus FEW (NONE-MOD) Urine HCG, Qual NEGATIVE (NEGATIVE) H. pylori IgG Antibody (NEG) 12/30/18 12/30/18 12/30/18 Range/Units 18:41 18:41 19:23 WBC (4.0-11.0) K/uL RBC (4.30-5.90) M/uL Hgb (12.0-16.0) g/dL Hct (36.0-46.0) % MCV (80.0-98.0) fL MCH (27.0-32.0) pg MCHC (31.0-37.0) g/dL RDW Std Deviation (28.0-62.0) fl RDW Coeff of Anabella (11.0-15.0) % Plt Count (150-400) K/uL MPV (7.40-12.00) fL Neut % (Auto) (48.0-80.0) % Lymph % (Auto) (16.0-40.0) % [place] % (Auto) (0.0-15.0) % Eos % (Auto) (0.0-7.0) % Baso % (Auto) (0.0-1.5) % Neut # (Auto) (1.4-5.7) K/uL Lymph # (Auto) (0.6-2.4) K/uL [place] # (Auto) (0.0-0.8) K/uL Eos # (Auto) (0.0-0.7) K/uL Baso # (Auto) (0.0-0.1) K/uL Nucleated RBC % /100WBC Nucleated RBCs # K/uL Lactate 1.3 (0.20-2.00) mmol/L Sodium 137 (136-145) mmol/L Potassium 4.0 (3.5-5.1) mmol/L Chloride 104 (98-107) mmol/L Carbon Dioxide 24.4 (21.0-32.0) mmol/L BUN 11 (7.0-18.0) mg/dL Creatinine 0.9 (0.6-1.0) mg/dL Est Cr Clr Drug Dosing 85.38 mL/min Estimated GFR (MDRD) > 60.0 ml/min Glucose 119 H (74-106) mg/dL Calcium 9.2 (8.5-10.1) mg/dL Total Bilirubin 0.3 (0.2-1.0) mg/dL AST 18 (15-37) IU/L ALT 26 (14-63) IU/L Alkaline Phosphatase 90 (46-116) U/L Total Protein 7.5 (6.4-8.2) g/dL Albumin 3.9 (3.4-5.0) g/dL Globulin 3.6 (2.6-4.0) g/dL Albumin/Globulin Ratio 1.1 (0.9-1.6) Lipase 265 (73-393) U/L Urine Color Urine Appearance Urine pH (5.0-8.0) Ur Specific [place] (1.001-1.035) Urine Protein (NEGATIVE) mg/dL Urine Glucose (UA) (NEGATIVE) mg/dL Urine Ketones (NEGATIVE) mg/dL Urine Occult Blood (NEGATIVE) Urine Nitrite (NEGATIVE) Urine Bilirubin (NEGATIVE) Urine Urobilinogen (<2.0) EU/dL Ur Leukocyte Esterase (NEGATIVE) Urine RBC (0-2/HPF) Urine WBC (0-5/HPF) Ur Epithelial Cells (NONE-FEW) Urine Bacteria (NEGATIVE) Urine Mucus (NONE-MOD) Urine HCG, Qual (NEGATIVE) H. pylori IgG Antibody NEGATIVE (NEG) Meds: Medications Generic Name Dose Route Start Last Admin Trade Name Freq PRN Reason Stop Dose Admin Sodium Chloride 10 ml 12/30/18 18:16 Saline Flush FLUSH ASDIRECTED PRN Keep Vein Open Sodium Chloride 2.5 ml 12/30/18 18:16 Saline Flush FLUSH ASDIRECTED PRN Keep Vein Open Discontinued Medications Generic Name Dose Route Start Last Admin Trade Name Freq PRN Reason Stop Dose Admin Famotidine 20 mg 12/30/18 18:16 12/30/18 19:14 Pepcid IVPUSH 12/30/18 18:17 20 mg ONETIME ONE Administration Hydromorphone HCl 1 mg 12/30/18 20:39 12/30/18 20:45 Dilaudid IVPUSH 12/30/18 20:40 1 mg ONETIME ONE Administration Sodium Chloride 1,000 mls @ 999 mls/hr 12/30/18 18:15 12/30/18 19:10 Normal Saline IV 12/30/18 19:15 999 mls/hr .Bolus ONE Administration Iopamidol 100 ml 12/30/18 20:17 12/30/18 20:17 Isovue Multipack-370 (76%) IVPUSH 12/30/18 20:18 100 ml ONETIME STA Administration Morphine Sulfate 4 mg 12/30/18 19:22 12/30/18 19:40 Morphine IVPUSH 12/30/18 19:23 4 mg ONETIME ONE Administration Ondansetron HCl 4 mg 12/30/18 18:15 12/30/18 19:14 Zofran IVPUSH 12/30/18 18:16 4 mg ONETIME ONE Administration Ondansetron HCl 4 mg 12/30/18 19:22 12/30/18 19:39 Zofran IVPUSH 12/30/18 19:23 4 mg ONETIME ONE Administration Departure - Departure Disposition: Home, Self-Care 01 Clinical Impression: Vomiting, Abdominal pain - Discharge Information Referrals: Frances Marrufo DO [Primary Care Provider] - Forms: ED Department Discharge Additional Instructions: The following information is given to patients seen in the emergency department who are being discharged to home. This information is to outline your options for follow-up care. We provide all patients seen in our emergency department with a follow-up referral. The need for follow-up, as well as the timing and circumstances, are variable depending upon the specifics of your emergency department visit. If you don't have a primary care physician on staff, we will provide you with a referral. We always advise you to contact your personal physician following an emergency department visit to inform them of the circumstance of the visit and for follow-up with them and/or the need for any referrals to a consulting specialist. The emergency department will also refer you to a specialist when appropriate. This referral assures that you have the opportunity for followup care with a specialist. All of these measure are taken in an effort to provide you with optimal care, which includes your followup. Under all circumstances we always encourage you to contact your private physician who remains a resource for coordinating your care. When calling for followup care, please make the office aware that this follow-up is from your recent emergency room visit. If for any reason you are refused follow-up, please contact the [facility] emergency department at and ask to speak to the emergency department charge nurse. [address] [place] [id number] Please contact her provider at [facility] for follow-up as we discussed and get GI referral to get a colonoscopy and further care of your IBS area use medications as prescribed and if you take the tramadol only take it with the Benadryl as we discussed due to your sensitivity. Push hydration and return to ER as needed and as discussed <CervantesTammy Bernardo - Last Filed: 12/30/18 20:50> ED HPI GENERAL MEDICAL PROBLEM - History of Present Illness INITIAL COMMENTS - FREE TEXT/NARRATIVE: Dr. Cervantes dictating addendum note as this case was endorsed to me at 7 PM to follow-up the CT scan results. The patient is still complaining of diffuse abdominal pain but has a relatively benign exam and stable vitals. She has not had any vomiting or diarrhea since she has been here. The CT scan revealed no evidence of any acute abnormalities and this was discussed at length with the patient and mother in the room. In light of her history of IBS I recommended following up with her provider at [facility] to get GI referral for colonoscopy and further care and management of this chronic problem. Will give her a dose of Dilaudid here prior to going home and have written a prescription for Zofran and Bentyl and Prevacid as well as tramadol. The patient tells me she can take tramadol if she takes it with Benadryl and she would like some of those dispensed to her. She says she has taken the tramadol in the past with Benadryl and it has worked and she would like a prescription for that. She is aware of need to push hydration and her diet and we discussed some other over- the-counter meds such as probiotics that she can start trying to use in the interim. She is aware that the pain will not be completely alleviated and that she will have to work with the medications prescribed and follow-up with her provider. Impression Diffuse abdominal pain stable vomiting improved ED ROS GENERAL - Review of Systems Review Of Systems: ROS reveals no pertinent complaints other than HPI. Departure - Departure Time of Disposition: 20:49 Condition: Fair
[2018-12-30] MEDS: Iopamidol 755 MG/ML 500 ML Multipack Bottle IVPUSH STA (20:17)
--- NOTE | 2018-12-30 20:40 | CT ---
INDICATION: Pain, unable to keep food down TECHNIQUE: CT abdomen and pelvis acquired with 100 cc Isovue 370 IV contrast. COMPARISON: September 27, 2018 FINDINGS: Lower chest: Unremarkable. Liver: Unremarkable. Spleen: Unremarkable. Pancreas: Unremarkable. Gallbladder and bile ducts: Unremarkable. Adrenal glands: Unremarkable. Kidneys: Unremarkable. GI tract: Unremarkable. Appendix is normal. Vascular structures: Unremarkable. Lymph nodes: Unremarkable. Miscellaneous: Unremarkable. No free air or significant free fluid. Pelvic Organs: Unremarkable. Bones: Unremarkable for age. IMPRESSION: Unremarkable CT of the abdomen and pelvis. Please note that all CT scans at this facility use dose modulation, iterative reconstruction, and/or weight-based dosing when appropriate to reduce radiation dose to as low as reasonably achievable. Dictated by Matilde Montes MD @ Dec 30 2018 8:34PM Signed by Dr. Matilde Montes @ Dec 30 2018 8:38PM
[2018-12-30] MEDS: HYDROmorphone 1 MG/ML Syringe IVPUSH ONE (20:45)
== END 2018-12-30 21:00 | disposition home or self-care (01) ==
LOC: MW.ED 17:27
DX: R11.10 Vomiting, unspecified (principal); R10.9 Unspecified abdominal pain; K50.90 Crohn's disease, unspecified, without complications; Z88.5 Allergy status to narcotic agent; Z88.8 Allergy status to other drugs, medicaments and biological substances
CPT/HCPCS: 74177; 80053; 81001; 81025; 83605; 83690; 85025; 86677; 96361; 96374; 96375; 99284; J1170; J2270; J2405; J3490; J7040; Q9967